=== PATIENT | female | born 1985 | race Caucasian/White ===

== ENCOUNTER 2017-08-05 20:14 | Emergency (ER) | END 2017-08-06 00:28 | disposition home or self-care (01) ==

== ENCOUNTER 2017-09-11 14:15 | Emergency (ER) | END 2017-09-11 17:50 | disposition home or self-care (01) ==

== ENCOUNTER 2017-10-27 18:14 | Emergency (ER) | END 2017-10-28 02:04 | disposition home or self-care (01) ==

== ENCOUNTER 2018-07-09 13:47 | Emergency (ER) | payer OTHER ==
[~2018-07-09] VITALS: Ht 160 cm; Wt 109.7 kg
[~2018-07-09 13:47] MED LIST: ACET325T33 PO; BACTDS PO; CIPR500T4 PO; FIORICET PO; HYDR-4011 PO; NAPR-985 PO; ONDA4TAB35 PO; PANT40TA3 PO; Sucralfate PO
[2018-07-09 15:49] VITALS: Ht 160 cm; Wt 109.7 kg
--- NOTE | 2018-07-09 17:23 | ERD ---
ER Documentation Chief Complaint Chief Complaint UPPER ABD PAIN , NAUSEA, DIZZINESS X 1 WEEK HPI 33-year-old previously healthy female presenting with epigastric pain that has been going on for the past 1 week. The pain is constant, somewhat alleviated with Tylenol, with no alleviating or exacerbating factors. She does have assoc iated nausea but no vomiting. She has noticed her stools have been a little more loose than usual but no melena or blood. She saw her primary care doctor on July 03, and she was given a prescription for omeprazole, but this medication has not been helping with her symptoms. She complains of pain that she has difficulty describing. It is an 8 out of 10, nonradiating. No fevers or chills. She just finished her menstrual period. She denies taking any NSAIDs. ROS All systems reviewed and are negative except as per history of present illness. Medications Home Meds Active Scripts Famotidine* (Pepcid*) 20 Mg Tablet, 20 MG PO BID for 10 Days, TAB Prov:VANESSA CHAVARRIA MD 07/09/18 Acetaminophen* (Tylenol*) 325 Mg Tablet, 2 TAB PO Q8 PRN for PAIN AND OR ELEVATED TEMP, #20 TAB Prov:MARITZA LOGAN MD 06/19/18 Hydrocodone/Acetaminophen ([place] 5-325 Tablet) 1 Each Tablet, 1 TAB PO Q6H PRN for PAIN, #7 TAB Prov:TRUNG LUNSFORD PA-C 10/28/17 Naproxen* (Naprosyn*) 500 Mg Tablet, 500 MG PO BID PRN for PAIN AND/OR INFLAMMATION, #30 TAB Prov:TRUNG LUNSFORD PA-C 10/28/17 Ciprofloxacin Hcl* (Ciprofloxacin Hcl*) 500 Mg Tablet, 500 MG PO BID for 7 Days, TAB Prov:TRUNG LUNSFORD PA-C 10/28/17 Acetamin/Butalbital/Caffeine* (Fioricet*) [id number] Tab, 1 TAB PO Q6H PRN for PAIN, #30 TAB Prov:CALLIE OWENS PA-C 09/11/17 Acetamin/Butalbital/Caffeine* (Fioricet*) [id number] Tab, 1 TAB PO Q6H PRN for PAIN, #30 TAB Prov:PRATIMA WHALEY PA-C 08/05/17 Ondansetron Hcl* (Zofran* ODT) 4 mg -ODT Tab.disper, 4 MG PO q8h PRN for NAUSEA AND OR VOMITING, #20 TAB Prov:CARLEEN RAYGOZA NP 02/04/15 Pantoprazole* (Protonix*) 40 Mg Tablet.dr, 40 MG PO BID for 30 Days, TAB Prov:CARLEEN RAYGOZA NP 02/04/15 [Sucralfate] 1 GM TAB No Conflict Check, 1 GM PO QID for 30 Days, TAB Prov:CARLEEN RAYGOZA NP 02/04/15 Sulfamethoxazole-Trimethoprim* (Bactrim* DS) 800-160 Mg Tab, 1 TAB PO BID for 7 Days, TAB Prov:CARLEEN RAYGOZA NP 02/04/15 Allergies Allergies: Coded Allergies: latex (Verified Allergy, Unknown, 09/11/17) shrimp (Verified Allergy, Unknown, 09/11/17) levofloxacin (Verified Adverse Reaction, Mild, ANXIETY, 09/11/17) PMhx/Soc History of Surgery: Yes (,[facility],[place] Breast Augmentation) Anesthesia Reaction: No Hx Neurological Disorder: No Hx Respiratory Disorders: Yes (Asthma) Hx Cardiac Disorders: No Hx Psychiatric Problems: No Hx Miscellaneous Medical Probl: No Hx Alcohol Use: No Hx Substance Use: No Hx Tobacco Use: Yes FmHx Family History: No diabetes Physical Exam Vitals Vital Signs Date Temp Pulse Resp B/P (MAP) Pulse Ox O2 O2 Flow FiO2 Time Delivery Rate 07/09/18 84 20 120/74 98 Room Air 19:06 (89) 07/09/18 98.3 95 19 123/75 96 15:49 (91) Physical Exam Const: No acute distress Head: Atraumatic Eyes: Normal Conjunctiva ENT: Normal External Ears, Nose and Mouth. Neck: Full range of motion. No meningismus. Resp: Clear to auscultation bilaterally Cardio: Regular rate and rhythm, no murmurs Abd: Soft, non tender, non distended. No masses. Normal bowel sounds Skin: No petechiae or rashes Back: No midline or flank tenderness Ext: No cyanosis, or edema Neur: Awake and alert Psych: Normal Mood and Affect Result Diagram: 07/09/18 1752 07/09/18 1752 Results 24 hrs Laboratory Tests Test 07/09/18 17:52 07/09/18 18:09 07/09/18 18:11 White Blood Count 11.7 10^3/ul Red Blood Count 4.95 10^6/ul Hemoglobin 14.0 g/dl Hematocrit 42.8 % Mean Corpuscular Volume 86.5 fl Mean Corpuscular Hemoglobin 28.3 pg Mean Corpuscular 32.7 g/dl Hemoglobin Concent Red Cell Distribution Width 12.1 % Platelet Count 315 10^3/UL Mean Platelet Volume 10.1 fl Immature Granulocytes % 0.400 % Neutrophils % 62.8 % Lymphocytes % 27.8 % Monocytes % 7.0 % Eosinophils % 1.5 % Basophils % 0.5 % Nucleated Red Blood Cells % 0.0 /100WBC Immature Granulocytes # 0.050 10^3/ul Neutrophils # 7.4 10^3/ul Lymphocytes # 3.3 10^3/ul Monocytes # 0.8 10^3/ul Eosinophils # 0.2 10^3/ul Basophils # 0.1 10^3/ul Nucleated Red Blood Cells # 0.0 10^3/ul Sodium Level 139 mmol/L Potassium Level 3.6 mmol/L Chloride Level 102 mmol/L Carbon Dioxide Level 28 mmol/L Anion Gap 9 Blood Urea Nitrogen 11 mg/dl Creatinine 0.73 mg/dl Est Glomerular Filtrat Rate mL/min > 60 mL/min Glucose Level 90 mg/dl Calcium Level 9.3 mg/dl Total Bilirubin 0.2 mg/dl Direct Bilirubin 0.00 mg/dl Indirect Bilirubin 0.2 mg/dl Aspartate Amino Transf (AST/SGOT) 41 IU/L Alanine 37 IU/L Aminotransferase (ALT/SGPT) Alkaline Phosphatase 108 IU/L Total Protein 8.3 g/dl Albumin 4.4 g/dl Globulin 3.90 g/dl Albumin/Globulin Ratio 1.12 Lipase 53 U/L Bedside Urine pH (LAB) 6.0 Bedside Urine Protein (LAB) Negative Bedside Urine Glucose (UA) Negative Bedside Urine Ketones (LAB) Negative Bedside Urine Blood Negative Bedside Urine Nitrite (LAB) Negative Bedside Urine Leukocyte Esterase Negative (L POC Beta HCG, Qualitative NEGATIVE Current Medications Medications Dose Sig/Aminta Start Time Status Last (Trade) Ordered Route PRN Stop Time Admin Dose Reason Admin Sodium 1,000 ml @ Q1H STAT 07/09/18 DC 07/09/18 Chloride 1,000 mls/hr IV 17:24 18:27 07/09/18 18:23 10 mg ONCE STAT 07/09/18 DC 07/09/18 Metoclopramid IV 17:54 18:27 e HCl 07/09/18 17:55 (Reglan) Famotidine 20 mg ONCE STAT 07/09/18 DC 07/09/18 (Pepcid) PO 17:54 18:29 07/09/18 17:55 40 ml ONCE STAT 07/09/18 DC 07/09/18 Miscellaneous PO 17:54 18:27 Medication 07/09/18 17:55 (Gi Cocktail (2)) Procedures/MDM EMERGENT LABS AND DIAGNOSTIC STUDIES: Lab Results above were reviewed and interpreted by me. CBC: no anemia or evidence of infection CMP: No evidence of electrolyte abnormality, renal failure, hypoglycemia, liver failure, or biliary obstruction Lipase: no evidence of pancreatitis Radiology Results as interpreted by Radiology below were reviewed by Dianne Chavarria MD: Ultrasound gallbladder:no acute abnormalities Initial Nursing notes reviewed. Previous Medical Records requested via the Electronic Health Record. EMERGENCY DEPARTMENT COURSE / MEDICAL DECISION MAKING: Patient is presenting with epigastric abdominal pain for the past 1 week. Vitals are stable and she is afebrile. Differential includes but is not limited to biliary colic, biliary obstruction, acute cholecystitis, pancreatitis, hepatitis, gastritis. doubt pneumonia, colitis, cardiac pathology, aortic dissection, ureterolithiasis, pyelonephritis. Labs were ordered to evaluate for above and were unremarkable. Ultrasound of the abdomen ordered to evaluate gallbladder and showed no acute pathology. Patient was treated with a GI cocktail here with improvement of her symptoms. She will be discharged with prescription for Pepcid and recommended follow-up with PCP for further diagnostic testing as needed. Patient's blood pressure was elevated (>120/80) but appears stable without evidence of hypertensive emergency or urgency. The patient was counseled about the risks of hypertension and urged to pursue outpatient monitoring and therapy within a week with their primary care physician. Departure Diagnosis: Primary Impression: Abdominal pain Abdominal location: epigastric Qualified Codes: R10.13 - Epigastric pain Condition: Stable VANESSA CHAVARRIA MD Jul 09, 2018 17:22
[2018-07-09] MEDS ORDERED: SOD CHLORIDE 0.9% 1,000 ML IV STA (17:24)
[2018-07-09] MEDS ORDERED: FAMOTIDINE 20 MG TAB PO STA (17:54)
[2018-07-09] MEDS ORDERED: METOCLOPRAMIDE 10 MG INJ IV STA (17:54)
[2018-07-09] MEDS ORDERED: LIDOCAINE/MYLANTA 40 ML BTL PO STA (17:54)
[2018-07-09] MEDS ORDERED: FAMO-96 PO (18:54)
[2018-07-09 19:06] VITALS: BP 120/74; PULSE 84; RESP 20
== END 2018-07-09 19:08 | disposition home or self-care (01) ==
LOC: E/R 13:47
DX: R10.13 Epigastric pain (principal); J45.909 Unspecified asthma, uncomplicated; Z87.891 Personal history of nicotine dependence; Z91.040 Latex allergy status
CPT/HCPCS: 76705; 80053; 81003; 81025; 83690; 85025; 96374; J2765; J7030; Z7502; Z7610

== ENCOUNTER 2018-08-17 20:02 | Emergency (ER) | payer OTHER ==
[~2018-08-17] VITALS: Ht 160 cm; Wt 110.5 kg
[~2018-08-17 20:02] MED LIST changes: +FAMO-96 PO
[2018-08-17 20:10] VITALS: Ht 160 cm; Wt 110.5 kg
[2018-08-17] MEDS ORDERED: KETOROLAC 60 MG INJ IM STA (23:07)
[2018-08-18] MEDS ORDERED: CYCL10TA7 PO (00:49)
[2018-08-18] MEDS ORDERED: IBUP-1542 PO (00:49)
[2018-08-18 01:03] VITALS: BP 121/75; PULSE 82; RESP 18
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
== END 2018-08-18 01:05 | disposition home or self-care (01) ==
LOC: FTE 20:02
DX: M54.2 Cervicalgia (principal); R51 Headache; M54.9 Dorsalgia, unspecified; J45.909 Unspecified asthma, uncomplicated; F17.210 Nicotine dependence, cigarettes, uncomplicated; Z91.040 Latex allergy status
CPT/HCPCS: 81025; J1885; 96372

== ENCOUNTER 2018-10-05 19:02 | Emergency (ER) | payer OTHER ==
[~2018-10-05] VITALS: Ht 160 cm; Wt 109.0 kg
[~2018-10-05 19:02] MED LIST changes: +CYCL10TA7 PO; +IBUP-1542 PO
[2018-10-05 19:20] VITALS: Ht 160 cm; Wt 109.0 kg
[2018-10-05] MEDS ORDERED: ONDANSETRON 4 MG INJ IV STA (21:48)
[2018-10-05] MEDS ORDERED: morphine 4 MG/ML VIAL IV STA (21:48)
--- NOTE | 2018-10-05 21:48 | ERD ---
ER Documentation Chief Complaint Chief Complaint 3 HPI This is a 33-year-old female who presents here in the emergency department with complaints of upper abdominal pain that started today. Has difficulty walking due to pain. Vomited multiple times with nonbilious nonbloody emesis. Has difficulty walking due to pain. She is together with her daughter here to emergency department who has vomiting. LMP: Unknown. G 70 4M3. Denies headache, head injury, loss of consciousness, dizziness, neck pain, neck stiffness, throat pain, difficulty swallowing, difficulty breathing lying flat, shoulder pain, chest pain, back pain, constipation, diarrhea, urinary symptoms, or possibility being , loss of bowel and bladder control, trauma, injury, falls, difficulty walking due to pain, numbness or tingling sen sation, calf pain, recent travel, recent major surgery in the last 3 weeks, calf pain, recent long travel, recent exposure to any illness, recent antibiotic use in the last 3 months, fever, chills, seizures. Past medical history: Asthma. Surgical history: Social: Denies smoking, use of alcoholic beverages, use of illegal drugs. ROS All systems reviewed and are negative except as per history of present illness. Medications Home Meds Active Scripts Wbdasiwhqn-Sxrikgdjpmnzx-Amsyyttt* (Fioricet*) 50-300-40 Mg Capsule, 1 CAP PO Q6H, #10 CAP Prov:LANCE LEA PA-C 10/06/18 Famotidine* (Pepcid*) 20 Mg Tablet, 40 MG PO DAILY for 30 Days, TAB Prov:PASILAYING NICHOLSAR F 10/06/18 Acetaminophen* (Tylophen*) 500 Mg Capsule, 1 CAP PO Q6H PRN for PAIN AND OR ELEVATED TEMP, #20 CAP Prov:PASILABANKLAR F 10/06/18 Ondansetron Hcl* (Zofran*) 4 Mg Tablet, 4 MG PO Q8H PRN for NAUSEA AND/OR VOMITING, #30 TAB Prov:PASILAMAGDALENAKLAR F 10/06/18 Ibuprofen* (Motrin*) 600 Mg Tab, 600 MG PO Q6, #30 TAB Prov:TRUNG LUNSFORD PA-C 08/18/18 Cyclobenzaprine Hcl* (Cyclobenzaprine Hcl*) 10 Mg Tablet, 10 MG PO TID, #15 TAB Prov:TRUNG LUNSFORD PA-C 08/18/18 Famotidine* (Pepcid*) 20 Mg Tablet, 20 MG PO BID for 10 Days, TAB Prov:VANESSA BRYAN MD 07/09/18 Acetaminophen* (Tylenol*) 325 Mg Tablet, 2 TAB PO Q8 PRN for PAIN AND OR ELEVATED TEMP, #20 TAB Prov:MARITZA LOGAN MD 06/19/18 Hydrocodone/Acetaminophen ([place] 5-325 Tablet) 1 Each Tablet, 1 TAB PO Q6H PRN for PAIN, #7 TAB Prov:TRUNG LUNSFORD PA-C 10/28/17 Naproxen* (Naprosyn*) 500 Mg Tablet, 500 MG PO BID PRN for PAIN AND/OR INFLAMMATION, #30 TAB Prov:TRUNG LUNSFORD PA-C 10/28/17 Ciprofloxacin Hcl* (Ciprofloxacin Hcl*) 500 Mg Tablet, 500 MG PO BID for 7 Days, TAB Prov:TRUNG LUNSFORD PA-C 10/28/17 Acetamin/Butalbital/Caffeine* (Fioricet*) [id number] Tab, 1 TAB PO Q6H PRN for PAIN, #30 TAB Prov:CALLIE OWENS PA-C 09/11/17 Acetamin/Butalbital/Caffeine* (Fioricet*) [id number] Tab, 1 TAB PO Q6H PRN for PAIN, #30 TAB Prov:PRATIMA WHALEY PA-C 08/05/17 Ondansetron Hcl* (Zofran* ODT) 4 mg -ODT Tab.disper, 4 MG PO q8h PRN for NAUSEA AND OR VOMITING, #20 TAB Prov:CARLEEN RAYGOZA NP 02/04/15 Pantoprazole* (Protonix*) 40 Mg Tablet.dr, 40 MG PO BID for 30 Days, TAB Prov:CARLEEN RAYGOZA NP 02/04/15 [Sucralfate] 1 GM TAB No Conflict Check, 1 GM PO QID for 30 Days, TAB Prov:CARLEEN RAYGOZA NP 02/04/15 Sulfamethoxazole-Trimethoprim* (Bactrim* DS) 800-160 Mg Tab, 1 TAB PO BID for 7 Days, TAB Prov:CARLEEN RAYGOZA NP 02/04/15 Allergies Allergies: Coded Allergies: latex (Verified Allergy, Unknown, 10/05/18) shrimp (Verified Allergy, Unknown, 10/05/18) levofloxacin (Verified Adverse Reaction, Mild, ANXIETY, 10/05/18) PMhx/Soc History of Surgery: Yes (,Appy,[place] Breast Augmentation) Anesthesia Reaction: No Hx Neurological Disorder: No Hx Respiratory Disorders: Yes (Asthma) Hx Cardiac Disorders: No Hx Psychiatric Problems: No Hx Miscellaneous Medical Probl: No Hx Alcohol Use: No Hx Substance Use: No Hx Tobacco Use: Yes Physical Exam Vitals Physical Exam Const: No acute distress Head: Atraumatic Eyes: Normal Conjunctiva ENT: Normal External Ears, Nose and Mouth. Neck: Full range of motion. No meningismus. Resp: Clear to auscultation bilaterally Cardio: Regular rate and rhythm, no murmurs Abd: Soft, non tender, non distended. Normal bowel sounds. Has diffuse abdominal tenderness palpation. No CVA tenderness. Skin: No petechiae or rashes. Color appears normal for ethnicity. No skin tenting. No signs of severe dehydration. Back: No midline or flank tenderness Ext: No cyanosis, or edema Neur: Awake and alert. No neurological deficits. Psych: Normal Mood and Affect Results 24 hrs Laboratory Tests Test 10/05/18 21:59 10/05/18 22:01 Urine Color YELLOW Urine Clarity SLIGHTLY CLOUDY Urine pH 8.0 Urine Specific [place] 1.019 Urine Ketones NEGATIVE mg/dL Urine Nitrite NEGATIVE mg/dL Urine Bilirubin NEGATIVE mg/dL Urine Urobilinogen NEGATIVE mg/dL Urine Leukocyte Esterase NEGATIVE Moises/ul Urine Microscopic RBC 2 /HPF Urine Microscopic WBC 2 /HPF Urine Squamous Epithelial Cells FEW /HPF Urine Bacteria FEW /HPF Urine Hemoglobin 1+ mg/dL Urine Glucose NEGATIVE mg/dL Urine Total Protein 1+ mg/dl Urine Test NEGATIVE White Blood Count 15.3 10^3/ul Red Blood Count 5.25 10^6/ul Hemoglobin 14.9 g/dl Hematocrit 44.6 % Mean Corpuscular Volume 85.0 fl Mean Corpuscular Hemoglobin 28.4 pg Mean Corpuscular Hemoglobin Concent 33.4 g/dl Red Cell Distribution Width 11.9 % Platelet Count 333 10^3/UL Mean Platelet Volume 10.1 fl Immature Granulocytes % 0.300 % Neutrophils % 86.5 % Lymphocytes % 7.7 % Monocytes % 5.0 % Eosinophils % 0.2 % Basophils % 0.3 % Nucleated Red Blood Cells % 0.0 /100WBC Immature Granulocytes # 0.050 10^3/ul Neutrophils # 13.2 10^3/ul Lymphocytes # 1.2 10^3/ul Monocytes # 0.8 10^3/ul Eosinophils # 0.0 10^3/ul Basophils # 0.0 10^3/ul Nucleated Red Blood Cells # 0.0 10^3/ul Sodium Level 140 mmol/L Potassium Level 4.1 mmol/L Chloride Level 103 mmol/L Carbon Dioxide Level 28 mmol/L Anion Gap 9 Blood Urea Nitrogen 9 mg/dl Creatinine 0.71 mg/dl Est Glomerular Filtrat Rate mL/min > 60 mL/min Glucose Level 116 mg/dl Calcium Level 9.3 mg/dl Total Bilirubin 0.7 mg/dl Direct Bilirubin 0.00 mg/dl Indirect Bilirubin 0.7 mg/dl Aspartate Amino Transf (AST/SGOT) 56 IU/L Alanine Aminotransferase (ALT/SGPT) 62 IU/L Alkaline Phosphatase 128 IU/L Total Protein 9.0 g/dl Albumin 4.7 g/dl Globulin 4.30 g/dl Albumin/Globulin Ratio 1.09 Amylase Level 83 U/L Lipase 38 U/L Current Medications Medications Dose Sig/Aminta Start Time Status Last (Trade) Ordered Route PRN Stop Time Admin Dose Reason Admin Ondansetron 4 mg ONCE STAT 10/05/18 DC 10/05/18 HCl (Zofran IV 21:48 22:09 Inj) 10/05/18 21:52 Sodium 1,000 ml @ Q1H ONCE 10/05/18 DC 10/05/18 Chloride 1,000 mls/hr IV 22:00 22:09 10/05/18 22:59 Morphine 4 mg ONCE STAT 10/05/18 DC 10/05/18 Sulfate IV 21:48 22:09 (morphine) 10/05/18 21:53 Famotidine 20 mg ONCE ONCE 10/05/18 DC 10/05/18 (Pepcid Iv) IV 22:00 22:09 10/05/18 22:01 1 mg ONCE STAT 10/05/18 DC 10/05/18 Hydromorphone IV 23:30 23:38 HCl 10/05/18 23:31 (Dilaudid) Procedures/MDM Diagnostic tests: POC urine : Negative. Urinalysis: Reviewed. Culture urine: Sent. Blood works: Reviewed. Ultrasound of the abdomen: 1. Diffuse fatty infiltration of the liver with hepatomegaly. 2. No evidence of cholelithiasis. 3. Slight hyperechoic pancreas which may be within normal limits although some fatty infiltration may be present. Correlation with lipase/amylase levels are al so recommended if there is pain within this region. CT of the abdomen and pelvis: 1. Stable mild hepatomegaly with hepatic steatosis. 2. Tiny sliding hiatal hernia. 3. The bowel is unobstructed without evidence of perforation or abscess, and the appendix is surgically absent. 4. No nephrolithiasis nor hydronephrosis. Treatment: Saline lock. Normal saline IV bolus. Morphine IV. Zofran IV. Pepcid. Re-evaluation: Denies chest pain, abdominal pain. Negative Marr sign. Negative Malissa sign (heel jar test). Negative psoas sign. Negative Rovsing sign. Ambulatory with steady gait without pain to abdomen. Stated that she feels much better at this time and that she is ready to go home. Differential diagnosis I have low suspicion for pancreatitis, cholecystitis, diverticulitis, diverticulitis with abscess, bowel obstruction, appendicitis, ruptured appendicitis, pyelonephritis, nephrolithiasis, obstructing kidney stones, septic stone. Case was discussed with my supervising physician, Dr. Aly Loera who agreed with my medical decision making. Final diagnosis: Abdominal pain. Prescription: Zofran. Tylenol. Omeprazole. Follow-up with PCP in the next 24-48 hours. Come back in 8 hours for recheck of GI symptoms. Come back here in the emergency department for any new symptoms or any worsening symptoms. All questions and concerns were answered. Patient and family members verbalized understanding and agreed with plan of care. Hemodynamically stable on discharge. Departure Diagnosis: Primary Impression: Abdominal pain Condition: Stable Additional Instructions: Follow-up with PCP in the next 24-48 hours. Come back in 8 hours for recheck of GI symptoms. Come back here in the emergency department for any new symptoms or any worsening symptoms. YVAN GREWAL October 05, 2018 21:48
[2018-10-05] MEDS ORDERED: FAMOTIDINE 20 MG INJ IV ONE (22:00)
[2018-10-05] MEDS ORDERED: SOD CHLORIDE 0.9% 1,000 ML IV ONE (22:00)
[2018-10-05] MEDS ORDERED: HYDROmorphONE 2 MG/ML SYG IV STA (23:30)
[2018-10-06] MEDS ORDERED: ONDA4TAB8 PO (01:57)
[2018-10-06] MEDS ORDERED: FAMO-96 PO (01:58)
[2018-10-06] MEDS ORDERED: ACET500C5 PO (01:58)
[2018-10-06 02:42] VITALS: BP 100/58; PULSE 83; RESP 16
[2018-10-06] MEDS ORDERED: BUTA1CAP38 PO (15:41)
== END 2018-10-06 02:42 | disposition home or self-care (01) ==
LOC: FTE 19:02
DX: R10.10 Upper abdominal pain, unspecified (principal); R11.10 Vomiting, unspecified
CPT/HCPCS: 36415; 74176; 76705; 80053; 81001; 82150; 83690; 84703; 85025; 87086; 96374; 96375; J1170; J2270; J2405; J7030; Z7502; Z7610

== ENCOUNTER 2018-10-06 13:10 | Emergency (ER) | payer OTHER ==
[~2018-10-06] VITALS: Ht 162.6 cm; Wt 109.4 kg
[~2018-10-06 13:10] MED LIST changes: +ACET500C5 PO; +ONDA4TAB8 PO
[2018-10-06 13:12] VITALS: Ht 162.6 cm; Wt 109.4 kg
[2018-10-06] MEDS ORDERED: ONDANSETRON (ODT) 4 MG TAB ODT STA (14:52)
[2018-10-06] MEDS ORDERED: HYDROCODONE/APAP (5/325) TAB PO ONE (15:00)
--- NOTE | 2018-10-06 15:07 | ERD ---
ER Documentation Chief Complaint Chief Complaint was seen here for abd pain yesterday , here for recheck also c/o headache HPI Patient is a 33-year-old female with past medical history of asthma who presents the ER for concerns of abdominal pain recheck. Patient states she was discharged here last night and she was advised to return in 8 to 10 hours for "recheck". Recheck. Patient denies any worsening symptoms. She states she continues to have pain in the bilateral upper quadrants. She denies any vomiting. She does report associated nausea. She denies any fevers or chills. Patient denies any chest pain or shortness of breath at this time. Of note, patient states that she does eat spicy and fried foods occasionally. Patient states that she has a headache as well. Patient states her headache started after discharge. Pain is localized throughout her head. Patient did not take any pain medication for her headache upon returning home. She states she only took Pepcid when returning home. Patient denies any neck pain or neck stiffness. She denies any photophobia or phonophobia. Patient denies any falls or trauma. ROS All systems reviewed and are negative except as per history of present illness. Medications Home Meds Active Scripts Famotidine* (Pepcid*) 20 Mg Tablet, 40 MG PO DAILY for 30 Days, TAB Prov:YVAN GREWAL 10/06/18 Acetaminophen* (Tylophen*) 500 Mg Capsule, 1 CAP PO Q6H PRN for PAIN AND OR ELEVATED TEMP, #20 CAP Prov:PASILABANYINGAR F 10/06/18 Ondansetron Hcl* (Zofran*) 4 Mg Tablet, 4 MG PO Q8H PRN for NAUSEA AND/OR VOMITING, #30 TAB Prov:PASILAYVAN NICHOLS F 10/06/18 Ibuprofen* (Motrin*) 600 Mg Tab, 600 MG PO Q6, #30 TAB Prov:TRUNG LUNSFORD PA-C 08/18/18 Cyclobenzaprine Hcl* (Cyclobenzaprine Hcl*) 10 Mg Tablet, 10 MG PO TID, #15 TAB Prov:TRUNG LUNSFORD PA-C 08/18/18 Famotidine* (Pepcid*) 20 Mg Tablet, 20 MG PO BID for 10 Days, TAB Prov:VANESSA BRYAN MD 07/09/18 Acetaminophen* (Tylenol*) 325 Mg Tablet, 2 TAB PO Q8 PRN for PAIN AND OR ELEVATED TEMP, #20 TAB Prov:MARITZA LOGAN MD 06/19/18 Hydrocodone/Acetaminophen ([place] 5-325 Tablet) 1 Each Tablet, 1 TAB PO Q6H PRN for PAIN, #7 TAB Prov:TRUNG LUNSFORD PA-C 10/28/17 Naproxen* (Naprosyn*) 500 Mg Tablet, 500 MG PO BID PRN for PAIN AND/OR INFLAMMATION, #30 TAB Prov:TRUNG LUNSFORD PA-C 10/28/17 Ciprofloxacin Hcl* (Ciprofloxacin Hcl*) 500 Mg Tablet, 500 MG PO BID for 7 Days, TAB Prov:TRUNG LUNSFORD PA-C 10/28/17 Acetamin/Butalbital/Caffeine* (Fioricet*) [id number] Tab, 1 TAB PO Q6H PRN for PAIN, #30 TAB Prov:CALLIE OWENS PA-C 09/11/17 Acetamin/Butalbital/Caffeine* (Fioricet*) [id number] Tab, 1 TAB PO Q6H PRN for PAIN, #30 TAB Prov:PRATIMA WHALEY PA-C 08/05/17 Ondansetron Hcl* (Zofran* ODT) 4 mg -ODT Tab.disper, 4 MG PO q8h PRN for NAUSEA AND OR VOMITING, #20 TAB Prov:CARLEEN RAYGOZA NP 02/04/15 Pantoprazole* (Protonix*) 40 Mg Tablet.dr, 40 MG PO BID for 30 Days, TAB Prov:CARLEEN RAYGOZA NP 02/04/15 [Sucralfate] 1 GM TAB No Conflict Check, 1 GM PO QID for 30 Days, TAB Prov:CARLEEN RAYGOZA NP 02/04/15 Sulfamethoxazole-Trimethoprim* (Bactrim* DS) 800-160 Mg Tab, 1 TAB PO BID for 7 Days, TAB Prov:CARLEEN RAYGOZA NP 02/04/15 Allergies Allergies: Coded Allergies: latex (Verified Allergy, Unknown, 10/05/18) shrimp (Verified Allergy, Unknown, 10/05/18) levofloxacin (Verified Adverse Reaction, Mild, ANXIETY, 10/05/18) PMhx/Soc History of Surgery: Yes (,Appy,[place] Breast Augmentation) Anesthesia Reaction: No Hx Neurological Disorder: No Hx Respiratory Disorders: Yes (Asthma) Hx Cardiac Disorders: No Hx Psychiatric Problems: No Hx Miscellaneous Medical Probl: No Hx Alcohol Use: No Hx Substance Use: No Hx Tobacco Use: Yes Smoking Status: Never smoker FmHx Family History: No diabetes Physical Exam Vitals Vital Signs Date Temp Pulse Resp B/P (MAP) Pulse Ox O2 O2 Flow FiO2 Time Delivery Rate 10/06/18 98.6 94 18 128/81 98 13:12 (97) Physical Exam GENERAL: Well-developed, well-nourished female. Appears in no acute distress. Speaking in full sentences. HEAD: Normocephalic, atraumatic. EYES: Pupils are equally reactive bilaterally. EOMs grossly intact. No conjunctival erythema. ENT: Moist mucous membranes. No uvula deviation. No kissing tonsils. NECK: Supple. No meningismus. Normal range of motion of the neck. LUNG: Clear to auscultation bilaterally. No rhonchi, wheezing, rales or coarse breath sounds. HEART: Regular rate and rhythm. No murmurs, rubs or gallops. Equal pulses in bilateral upper extremities. Equal applications specialist strength bilaterally. ABDOMEN:. Soft and nondistended. Minimally tender to palpation of bilateral upper quadrants. Positive bowel sounds in all four quadrants. No rebound tenderness, no guarding. (-) McBurney's point tenderness. No CVA tenderness. BACK: No midline tenderness. EXTREMITIES: Equal pulses bilaterally. No peripheral clubbing, cyanosis or edema. No unilateral leg swelling. NEUROLOGIC: Alert and oriented. Moving all four extremities without any difficulty. Normal speech. Steady gait. Equal applications specialist strength in bilateral upper extremities. No facial asymmetry. Symmetric smile. No unilateral weakness. SKIN: Normal color. Warm and dry. No rashes or lesions. Results 24 hrs Current Medications Medications Dose Sig/Aminta Start Time Status Last (Trade) Ordered Route PRN Stop Time Admin Dose Reason Admin Ondansetron 4 mg ONCE STAT 10/06/18 DC 10/06/18 HCl (Zofran ODT 14:52 15:09 Odt) 10/06/18 14:53 1 tab ONCE ONCE 10/06/18 DC 10/06/18 Acetaminophen PO 15:00 15:09 / 10/06/18 15:01 Hydrocodone Bitart (Wal[place] (5/796)) Procedures/MDM MEDICAL DECISION MAKING: This is a 33-year-old female with past medical history of asthma presents ER for concerns of abdominal pain recheck. Patient was seen here yesterday states she was told to come back for recheck. Patient denies any worsening symptoms. However she states she continues to have pain in bilateral upper quadrants. Vital signs were reviewed. Patient was afebrile. Patient was not hypoxic. Review of the patient's medical records show that patient was seen here yesterday. Patient was noted to have a white count of 15,000 however patient was vomiting at the time. Patient has not had any additional episodes of vomiting. CMP showed no severe electrolyte abnormalities, acidosis, alkalosis, liver failure or renal injury. There was no evidence of pancreatitis. UA showed 1+ leukocyte esterase. Gallbladder ultrasound was obtained and showed diffuse fatty infiltration of the liver with hepatomegaly. No evidence of cholelithiasis. CT abdomen pelvis showed stable mild hepatomegaly with hepatic steatosis. Tiny sliding hiatal hernia noted. No evidence of bowel obstruction. No evidence of perforation or abscess. Appendix is surgically removed. No nephrolithiasis. No hydronephrosis. Patient does admit to eating spicy and fried foods. I educated the patient that she should avoid eating these foods as well as alcohol and caffeinated beverages. Patient was diagnosed with gastritis back in June 2018 however she states she has not followed up with an eyeglass frames inspector. Patient was encouraged to follow-up with a GI specialist that she will likely need endoscopy. Dietary changes were advised. I do feel that patient's symptoms are related to gastritis versus GERD. Patient was given Waldo here for headache. Patient had no unilateral weakness, slurred speech, difficulty in relating. Low suspicion for CVA or TIA. Low suspicion for meningitis or encephalopathy. Differential diagnosis included was not limited to CVA, TIA, sepsis, electrolyte abnormalities, acute coronary syndrome, AAA, mesenteric ischemia, lower lobe pneumonia, DKA, bowel perforation, cholecystitis, choledocholithiasis, ascending cholangitis, hepatic abscess, pancreatitis, PUD, gastritis, GERD, splenic rupture, diverticulitis, UTI, pyelonephritis, nephrolithiasis, appendicitis, constipation, , ectopic , PID, ovarian torsion or tubo-ovarian abscess. She was nontoxic, [id number] prior to discharge. PRESCRIPTIONS: Fioricet Patient advised to take medication as prescribed to her previous visit. Patient was given Pepcid, Tylenol and Zofran at previous visit. DISCHARGE: At this time, patient is stable for discharge and outpatient management. I have instructed the patient to follow-up with his/her primary care physician in 1-2 days. I have instructed the patient to promptly return to the ER at any time for any new or worsening symptoms including increased pain, nausea, vomiting, diarrhea, fever, weakness or LOC. The patient and/or family expressed understanding of and agreement with this plan. All questions were answered. Home care instructions were provided. Disclaimer: Inadvertent spelling and grammatical errors are likely due to EHR/dictation software use and do not reflect on the overall quality of patient care. Also, please note that the electronic time recorded on this note does not necessarily reflect the actual time of the patient encounter. Departure Diagnosis: Primary Impression: Abdominal pain Abdominal location: unspecified location Qualified Codes: R10.9 - Unspecified abdominal pain Additional Impression: Headache Headache type: unspecified Headache chronicity pattern: unspecified pattern Intractability: not intractable Qualified Codes: R51 - Headache Condition: Fair Patient Instructions: Abdominal Pain, Self-Care for Headaches Referrals: [facility] YOU HAVE RECEIVED A MEDICAL SCREENING EXAM AND THE RESULTS INDICATE THAT YOU DO NOT HAVE A CONDITION THAT REQUIRES URGENT TREATMENT IN THE EMERGENCY DEPARTMENT. FURTHER EVALUATION AND TREATMENT OF YOUR CONDITION CAN WAIT UNTIL YOU ARE SEEN IN YOUR DOCTORS OFFICE WITHIN THE NEXT 1-2 DAYS. IT IS YOUR RESPONSIBILITY TO MAKE AN APPOINTMENT FOR FOLOW-UP CARE. IF YOU HAVE A PRIMARY DOCTOR --you should call your primary doctor and schedule an appointment IF YOU DO NOT HAVE A PRIMARY DOCTOR YOU CAN CALL OUR PHYSICIAN REFERRAL HOTLINE AT IF YOU CAN NOT AFFORD TO SEE A PHYSICIAN YOU CAN CHOSE FROM THE FOLLOWING [facility] [address] [facility] [address] [facility] [address] [facility] [address] [facility] [address] [facility] [facility] [address] [facility]. [facility] YOU HAVE RECEIVED A MEDICAL SCREENING EXAM AND THE RESULTS INDICATE THAT YOU DO NOT HAVE A CONDITION THAT REQUIRES URGENT TREATMENT IN THE EMERGENCY DEPARTMENT. FURTHER EVALUATION AND TREATMENT OF YOUR CONDITION CAN WAIT UNTIL YOU ARE SEEN IN YOUR DOCTORS OFFICE WITHIN THE NEXT 1-2 DAYS. IT IS YOUR RESPONSIBILITY TO MAKE AN APPOINTMENT FOR FOLOW-UP CARE. IF YOU HAVE A PRIMARY DOCTOR --you should call your primary doctor and schedule and appointment IF YOU DO NOT HAVE A PRIMARY DOCTOR YOU CAN CALL OUR PHYSICIAN REFERRAL HOTLINE AT . IF YOU CAN NOT AFFORD TO SEE A PHYSICIAN YOU CAN CHOSE FROM THE FOLLOWING [facility]: [facility] [address] [place] [address] [facility] [address] [place] [address] [facility] + [facility] [address] [place] [address] Additional Instructions: Follow-up with a GI specialist as advised. Continue taking Pepcid. Endoscopy advised on outpatient basis. Avoid spicy, fried, acidic, fatty foods. Avoid alcohol and caffeine. Call your primary care doctor TOMORROW for an appointment during the next 1-2 days.See the doctor sooner or return here if your condition worsens before your appointment time. LANCE LEA PA-C October 06, 2018 15:07
[2018-10-06] MEDS ORDERED: BUTA1CAP38 PO (15:41)
[2018-10-06 15:52] VITALS: BP 120/80; PULSE 88; RESP 18
== END 2018-10-06 15:53 | disposition home or self-care (01) ==
LOC: FTE 13:10
DX: R51 Headache (principal); R10.11 Right upper quadrant pain; R10.12 Left upper quadrant pain; R11.0 Nausea; J45.909 Unspecified asthma, uncomplicated
CPT/HCPCS: Z7610 ×2; 99283

== ENCOUNTER 2018-11-14 19:25 | Emergency (ER) | payer OTHER ==
[~2018-11-14] VITALS: Ht 160 cm; Wt 110.3 kg
[~2018-11-14 19:25] MED LIST changes: +BUTA1CAP38 PO
[2018-11-14 19:30] VITALS: BP 150/105; PULSE 94; RESP 18; Ht 160 cm; Wt 110.3 kg
[2018-11-14] MEDS ORDERED: IBUP800T48 PO (21:57)
[2018-11-14] MEDS ORDERED: CEPH-443 PO (21:57)
[2018-11-14] MEDS ORDERED: KETOROLAC 60 MG INJ IM STA (21:59)
[2018-11-14] MEDS ORDERED: DIPH25CA6 PO (21:59)
[2018-11-14] MEDS ORDERED: DEXAMETHASONE 10 MG/ML 1 ML INJ IM ONE (22:00)
[2018-11-14] MEDS ORDERED: DIPHENHYDRAMINE 25 MG CAP PO ONE (22:00)
--- NOTE | 2018-11-17 20:53 | ERD ---
ER Documentation Chief Complaint Chief Complaint BUG BITE TO RIGHT EAR YESTERDAY, SWELLING AND PAIN HPI History of Present Illness: 33-year-old female with a past medical history of asthma coming in today with complaint to bug bite to right ear that occurred yesterday. Pain and swelling to the pinna of the ear. Denies fever, chills At home pharmacological/nonpharmacological treatment for symptoms: Denies Denies social concerns; Denies recent foreign travel ROS All systems reviewed and are negative except as per history of present illness. Medications Home Meds Active Scripts Diphenhydramine Hcl* (Diphenhydramine Hcl*) 25 Mg Capsule, 25 MG PO Q6 PRN for ITCHING/SWELLING, #30 CAP Prov:SARABJIT MITCHELL NP 11/14/18 Ibuprofen* (Motrin*) 800 Mg Tab, 800 MG PO Q6H PRN for PAIN AND/OR INFLAMMATION, #30 TAB Prov:SARABJIT MITCHELL NP 11/14/18 Cephalexin* (Keflex*) 500 Mg Capsule, 500 MG PO TID for CELLULITIS for 7 Days, CAP Prov:SARABJIT MITCHELL NP 11/14/18 Xzjtwoisgv-Ptjqlaermxnze-Bfkrogle* (Fioricet*) 50-300-40 Mg Capsule, 1 CAP PO Q6H, #10 CAP Prov:LANCE LEA PA-C 10/06/18 Famotidine* (Pepcid*) 20 Mg Tablet, 40 MG PO DAILY for 30 Days, TAB Prov:PASYVAN RICHARDS 10/06/18 Acetaminophen* (Tylophen*) 500 Mg Capsule, 1 CAP PO Q6H PRN for PAIN AND OR ELEVATED TEMP, #20 CAP Prov:PASILAYVAN NICHOLS F 10/06/18 Ondansetron Hcl* (Zofran*) 4 Mg Tablet, 4 MG PO Q8H PRN for NAUSEA AND/OR VOMITING, #30 TAB Prov:PASYVAN RICHARDS 10/06/18 Ibuprofen* (Motrin*) 600 Mg Tab, 600 MG PO Q6, #30 TAB Prov:TRUNG LUNSFORD PA-C 08/18/18 Cyclobenzaprine Hcl* (Cyclobenzaprine Hcl*) 10 Mg Tablet, 10 MG PO TID, #15 TAB Prov:TRUNG LUNSFORD PA-C 08/18/18 Famotidine* (Pepcid*) 20 Mg Tablet, 20 MG PO BID for 10 Days, TAB Prov:VANESSA BRYAN MD 07/09/18 Acetaminophen* (Tylenol*) 325 Mg Tablet, 2 TAB PO Q8 PRN for PAIN AND OR ELEVATED TEMP, #20 TAB Prov:MARITZA LOGAN MD 06/19/18 Hydrocodone/Acetaminophen ([place] 5-325 Tablet) 1 Each Tablet, 1 TAB PO Q6H PRN for PAIN, #7 TAB Prov:TRUNG LUNSFORD PA-C 10/28/17 Naproxen* (Naprosyn*) 500 Mg Tablet, 500 MG PO BID PRN for PAIN AND/OR INFLAMMATION, #30 TAB Prov:TRUNG LUNSFORD PA-C 10/28/17 Ciprofloxacin Hcl* (Ciprofloxacin Hcl*) 500 Mg Tablet, 500 MG PO BID for 7 Days, TAB Prov:TRUNG LUNSFORD PA-C 10/28/17 Acetamin/Butalbital/Caffeine* (Fioricet*) [id number] Tab, 1 TAB PO Q6H PRN for PAIN, #30 TAB Prov:CALLIE OWENS PA-C 09/11/17 Acetamin/Butalbital/Caffeine* (Fioricet*) [id number] Tab, 1 TAB PO Q6H PRN for PAIN, #30 TAB Prov:PRATIMA WHALEY PA-C 08/05/17 Ondansetron Hcl* (Zofran* ODT) 4 mg -ODT Tab.disper, 4 MG PO q8h PRN for NAUSEA AND OR VOMITING, #20 TAB Prov:CARLEEN RAYGOZA NP 02/04/15 Pantoprazole* (Protonix*) 40 Mg Tablet.dr, 40 MG PO BID for 30 Days, TAB Prov:CARLEEN RAYGOZA NP 02/04/15 [Sucralfate] 1 GM TAB No Conflict Check, 1 GM PO QID for 30 Days, TAB Prov:CARLEEN RAYGOZA NP 02/04/15 Sulfamethoxazole-Trimethoprim* (Bactrim* DS) 800-160 Mg Tab, 1 TAB PO BID for 7 Days, TAB Prov:CARLEEN RAYGOZA NP 02/04/15 Allergies Allergies: Coded Allergies: latex (Verified Allergy, Unknown, 10/05/18) shrimp (Verified Allergy, Unknown, 10/05/18) levofloxacin (Verified Adverse Reaction, Mild, ANXIETY, 10/05/18) PMhx/Soc History of Surgery: Yes (,[place],[place] Breast Augmentation) Anesthesia Reaction: No Hx Neurological Disorder: No Hx Respiratory Disorders: Yes (Asthma) Hx Cardiac Disorders: No Hx Psychiatric Problems: No Hx Miscellaneous Medical Probl: No Hx Alcohol Use: No Hx Substance Use: No Hx Tobacco Use: Yes Smoking Status: Never smoker FmHx Family History: diabetes, coronary disease Physical Exam Vitals Vital Signs Date Temp Pulse Resp B/P (MAP) Pulse Ox O2 O2 Flow FiO2 Time Delivery Rate 11/14/18 98.4 94 18 150/105 97 19:30 (120) Physical Exam Const: No acute distress, afebrile Head: Atraumatic Eyes: Normal Conjunctiva ENT: Normal Nose and Mouth. Erythema and swelling noted to right pinna, tender to palpation, puncture site of possible insect bite visible. Neck: Full range of motion. No meningismus. Resp: Clear to auscultation bilaterally Cardio: Regular rate and rhythm, no murmurs Abd: Soft, non tender, non distended. No guarding, no masses, no rigidity Skin: No petechiae or rashes Back: No midline or flank tenderness Ext: No cyanosis, or edema Neur: Awake and alert x3, speaking in clear sentences, no focal deficits or facial asymmetry Psych: Normal Mood and Affect Results 24 hrs Laboratory Tests Test 11/14/18 21:24 POC Beta HCG, Qualitative NEGATIVE Current Medications Medications Dose Sig/Aminta Start Time Status Last (Trade) Ordered Route PRN Stop Time Admin Dose Reason Admin 8 mg ONCE ONCE 11/14/18 DC 11/14/18 Dexamethasone IM 22:00 11/14/18 22:30 (Decadron) 22:01 Ketorolac 60 mg ONCE STAT 11/14/18 DC 11/14/18 Tromethamine IM 21:59 11/14/18 22:31 (Toradol) 22:01 25 mg ONCE ONCE 11/14/18 DC 11/14/18 Diphenhydrami PO 22:00 11/14/18 22:30 ne HCl 22:01 (Benadryl) Procedures/MDM ED COURSE: ED course includes a thorough examination and history. The patient was stable throughout ED course. I kept the patient and/or family informed of laboratory and diagnostic imaging results throughout the ED course. LABS: Urine negative MEDICATIONS GIVEN IN ER: Dexamethasone, ketorolac, Keflex Patient tolerated medication well with no adverse reactions. Patient reported improvement in pain. DIAGNOSTIC IMAGING: None PROCEDURES: None. MEDICAL DECISION MAKING: Low suspicion for life-threatening medical emergency. Low suspicion for infectious process that requires IV/IM antibiotics or hospitalization. Otherwise healthy patient presenting with constellation of symptoms likely representing uncomplicated insect bite as characterized by history, physical exam findings. Patient reassessment @ 2235: Patient medicated as ordered. Patient hemodynamically stable. No respiratory distress, otherwise relatively well appearing and nontoxic. Disposition given. Patient educated on diagnoses, prescriptions, follow-up care, return precautions. Strict return precautions given for worsening condition; questions answered discharge. Patient verbalizes understanding of discharge instructions. PRESCRIPTIONS FOR HOME: Diphenhydramine ibuprofen cephalexin DISPOSITION: DISCHARGE At this time, patient is stable for discharge and outpatient management. I have instructed the patient to follow-up with his/her primary care physician in 1-2 days. I have discussed with the patient the possibility of needing to see a specialist for further workup and imaging studies if symptoms persist. I have instructed the patient to promptly return to the ER for any new or worsening symptoms including increased pain, fever, nausea, vomiting, weakness or LOC. The patient and/or family expressed understanding of and agreement with this plan. All questions were answered. Home care instructions were provided. DISCLAIMER: Inadvertent spelling and grammatical errors are likely due to EHR/dictation software use and do not reflect on the overall quality of patient care. Also, please note that the electronic time recorded on this note does not necessarily reflect the actual time of the patient encounter. Departure Diagnosis: Primary Impression: Insect bites Condition: Stable Patient Instructions: Insect Sting/Bite, Infected Referrals: COMMUNITY CLINICS YOU HAVE RECEIVED A MEDICAL SCREENING EXAM AND THE RESULTS INDICATE THAT YOU DO NOT HAVE A CONDITION THAT REQUIRES URGENT TREATMENT IN THE EMERGENCY DEPARTMENT. FURTHER EVALUATION AND TREATMENT OF YOUR CONDITION CAN WAIT UNTIL YOU ARE SEEN IN YOUR DOCTORS OFFICE WITHIN THE NEXT 1-2 DAYS. IT IS YOUR RESPONSIBILITY TO MAKE AN APPOINTMENT FOR FOLOW-UP CARE. IF YOU HAVE A PRIMARY DOCTOR --you should call your primary doctor and schedule an appointment IF YOU DO NOT HAVE A PRIMARY DOCTOR YOU CAN CALL OUR PHYSICIAN REFERRAL HOTLINE AT IF YOU CAN NOT AFFORD TO SEE A PHYSICIAN YOU CAN CHOSE FROM THE FOLLOWING [facility] [address] [place] [facility] [address] [facility] [address] [facility] [address] [facility] [address] [facility]. [facility] [address] [facility]. [facility] YOU HAVE RECEIVED A MEDICAL SCREENING EXAM AND THE RESULTS INDICATE THAT YOU DO NOT HAVE A CONDITION THAT REQUIRES URGENT TREATMENT IN THE EMERGENCY DEPARTMENT. FURTHER EVALUATION AND TREATMENT OF YOUR CONDITION CAN WAIT UNTIL YOU ARE SEEN IN YOUR DOCTORS OFFICE WITHIN THE NEXT 1-2 DAYS. IT IS YOUR RESPONSIBILITY TO MAKE AN APPOINTMENT FOR FOLOW-UP CARE. IF YOU HAVE A PRIMARY DOCTOR --you should call your primary doctor and schedule and appointment IF YOU DO NOT HAVE A PRIMARY DOCTOR YOU CAN CALL OUR PHYSICIAN REFERRAL HOTLINE AT . IF YOU CAN NOT AFFORD TO SEE A PHYSICIAN YOU CAN CHOSE FROM THE FOLLOWING [facility]: [facility] [address] [place] [address] [facility] [address] [place] [address] [facility] [address] [place] [address] Additional Instructions: Thank you very much for allowing us to participate in your care. Your health and safety is our top priority at [facility]. It is important to read all discharge instructions and education provided in your discharge packet. Call your primary care doctor TOMORROW for an appointment during the next 2-4 da ys and bring all the information and medications prescribed. Have prescriptions filled and follow precisely the directions on the label. If the symptoms get worse and your provider is unavailable, return to the Emergency Department immediately. SARABJIT MITCHELL NP Nov 17, 2018 20:53
== END 2018-11-14 22:36 | disposition home or self-care (01) ==
LOC: FTE 19:25
DX: S00.461A Insect bite (nonvenomous) of right ear, initial encounter (principal); J45.909 Unspecified asthma, uncomplicated; W57.XXXA Bitten or stung by nonvenomous insect and other nonvenomous arthropods, initial encounter; Y92.9 Unspecified place or not applicable; Z87.891 Personal history of nicotine dependence; Z91.040 Latex allergy status
CPT/HCPCS: 81025; 96372; J1100; J1885; Z7502; Z7610